=== PATIENT | male | born 1950 | race Caucasian/White ===

== ENCOUNTER 2016-11-22 16:55 | Emergency (ER) | payer SELFPAY ==
[2016-11-22 17:02] VITALS: BP 96/64; PULSE 83; RESP 18; TEMP 99.3; O2SAT 95
--- NOTE | 2016-11-22 17:10 | EDPHY ---
H & P Time Seen by Provider: 11/22/16 17:04 HPI/ROS: CHIEF COMPLAINT: Dog bite left calf HISTORY OF PRESENT ILLNESS: 66-year-old male with up-to-date tetanus complaining of acute left calf dog bite when he was [place]. He reported this to the parking lot attendant and cashier. No paresthesia. Course shortly prior to arrival PHYSICAL EXAM (Prior to examination, patient consented to physical exam, hands were washed and my usual and customary physical exam procedures followed) 1) GENERAL: Well-developed, well-nourished, alert and oriented. Appears to be in no acute distress. 2) HEAD: Normocephalic 3) HEENT: sclera anicteric 4) LUNGS: Breathing comfortably. 5) SKIN: left posterior calf multiple puncture wounds consistent with bite. Compartments are soft. No erythema. 6) MUSCULOSKELETAL: soft compartments. 7) NEUROLOGIC: Full sensation distally Smoking Status: Never smoked Constitutional: Initial Vital Signs Temperature (C) 37.4 C 11/22/16 16:59 Heart Rate 83 11/22/16 16:59 Respiratory Rate 18 11/22/16 16:59 Blood Pressure 96/64 L 11/22/16 16:59 O2 Sat (%) 95 11/22/16 16:59 O2 Delivery Mode Room Air Allergies/Adverse Reactions: codeine Allergy (Unknown, Verified 11/22/16 17:03) As Child Home Medications: Medication Instructions Recorded Amoxicillin/Clavulanate Pot 875 mg PO BID #14 tab 11/22/16 [Augmentin 875 mg tab] MDM/Departure - MDM ED Course/Re-evaluation: Patient superficial dog bite which was irrigated by staff, dressed, started on Augmentin, usual and customary infection precautions provided. His tetanus is up-to-date. - Depart Disposition: Home, Routine, Self-Care Clinical Impression: Dog bite of left calf Qualifiers: Encounter type: initial encounter Qualified Code(s): S81.852A - Open bite, left lower leg, initial encounter; W54.0XXA - Bitten by dog, initial encounter Condition: Good Instructions: Animal Bite (ED) Additional Instructions: Return to the ER if you develop redness, swelling, discharge, warmth to the wound, red streaks going up your leg, or any other symptoms that concern you. Prescriptions: Amoxicillin/Clavulanate Pot [Augmentin 875 mg tab] 875 mg PO BID #14 tab Referrals: Follow-up, at [facility] in 3 days [Other] - As per Instructions
== END 2016-11-22 17:33 | disposition home or self-care (01) ==
DX: S81.852A Open bite, left lower leg, initial encounter (principal); W54.0XXA Bitten by dog, initial encounter; Y99.8 Other external cause status; Y93.01 Activity, walking, marching and hiking

== ENCOUNTER 2019-02-07 22:45 | Emergency (ER) | payer OTHER | END 2019-02-08 00:32 | disposition home or self-care (01) ==